=== PATIENT | female | born 1995 | race Caucasian/White ===

== ENCOUNTER 2021-03-04 05:55 | Day surgery (SDC) | payer MEDICAID, SELFPAY ==
[~2021-03-04] VITALS: Ht 160 cm; Wt 54.4 kg
[2021-03-04 06:38] LABS: HCG,QUAL RESULT NEGATIVE (NEGATIVE)
[2021-03-04] MEDS ORDERED: HYDROmorphone 1 MG/ML INJ. CARTRIDGE IVP PRN (11:45)
[2021-03-04] MEDS ORDERED: KETOROLAC TROMETHAMINE 30 MG VIAL IVP PRN (11:45)
[2021-03-04] MEDS ORDERED: ONDANSETRON HCL 4 MG/2 ML VIAL IVP PRN (11:45)
[2021-03-04 16:00] VITALS: BP_SYST 106
== END 2021-03-04 14:05 | disposition home or self-care (01) ==
LOC: SMU 05:55 → SDS 05:55
PROVIDERS: ATTEND Obstetrics & Gynecology
DX: T83.32XA Displacement of intrauterine contraceptive device, initial encounter (principal); Y82.8 Other medical devices associated with adverse incidents; Z79.899 Other long term (current) drug therapy; Z20.822 Contact with and (suspected) exposure to COVID-19
CPT/HCPCS: 36415; 58555; 84703; 86886; 86900; 86901; 87426; U0003